=== PATIENT | male | born 1945 | race African-American/Black ===

== ENCOUNTER 2019-02-12 12:54 | Emergency (ER) | payer MEDICARE, OTHER ==
[~2019-02-12] VITALS: Ht 175.3 cm; Wt 91.4 kg
[~2019-02-12 12:54] MED LIST: /THIA10TA OR; AMBI5TAB OR; ATOR40TA75 PO; BENZ200C70 PO; CATA0.2T OR; CLAR10CA3 PO; FLON1SPR NARES; FOLI1TAB OR; MULTIVIT PO; No Historical Meds; OMEP20TA7 OR; OXAZ10CA25 OR
[2019-02-12] MEDS ORDERED: PRED20TA PO (15:37)
[2019-02-12 15:39] VITALS: BP 125/60
== END 2019-02-12 15:42 | disposition home or self-care (01) ==
LOC: M ED 12:54
DX: J02.9 Acute pharyngitis, unspecified (principal); Z79.899 Other long term (current) drug therapy

== ENCOUNTER 2022-01-11 12:51 | Emergency (ER) | payer MEDICARE, OTHER ==
[~2022-01-11] VITALS: Ht 175.3 cm; Wt 96.8 kg
[~2022-01-11 12:51] MED LIST changes: +PRED20TA PO
[2022-01-11 12:52] VITALS: BP 149/67
[2022-01-11] MEDS ORDERED: METO1TAB32 (13:03)
[2022-01-11] MEDS ORDERED: FAMO20TA PO (13:03)
[2022-01-11] MEDS ORDERED: LOSA25TA13 (13:03)
[2022-01-11] MEDS ORDERED: PANT40TA29 (13:03)
== END 2022-01-11 14:35 | disposition left against medical advice (07) ==
LOC: M ED 12:51
DX: R49.0 Dysphonia (principal); R05.9 Cough, unspecified; I10 Essential (primary) hypertension; E78.5 Hyperlipidemia, unspecified; K21.9 Gastro-esophageal reflux disease without esophagitis; Z79.899 Other long term (current) drug therapy